=== PATIENT | female | born 1970 | race Caucasian/White ===

== ENCOUNTER 2018-10-17 13:36 | Emergency (ER) | payer MEDICAID ==
[~2018-10-17] VITALS: Ht 152.4 cm; Wt 75.9 kg
[~2018-10-17 13:36] MED LIST: ACET1TAB12 PO; ONDA4TAB12 PO
[2018-10-17 13:53] VITALS: BP 157/71
--- NOTE | 2018-10-17 13:58 | NUR ---
DUE TO THE FACT THAT PT IS UNABLE TO GET BACK TO A ROOM RIGHT AWAY SHE DECIDES TO GO HOME SO SHE CAN LAY DOWN. PT IS TOLD IT WONT BE A LONG WAIT BUT DECIDES TO LEAVE ANYWAY.
== END 2018-10-17 13:59 | disposition left against medical advice (07) ==
LOC: ER 13:37
DX: R10.9 Unspecified abdominal pain (principal); Z53.21 Procedure and treatment not carried out due to patient leaving prior to being seen by health care provider

== ENCOUNTER 2018-11-12 10:48 | Emergency (ER) | payer MEDICAID ==
[~2018-11-12] VITALS: Ht 152.4 cm; Wt 75.9 kg
[2018-11-12 11:38] LABS: BASOPHILS % (AUTO) 0.4 % (0-1); EOSINOPHILS # (AUTO) 0.3 X10'3 (0-0.9); EOSINOPHILS % (AUTO) 4.3 % (0-6); HEMATOCRIT 28.3 % (35.0-45.0); LYMPHOCYTES # (AUTO) 2.2 X10'3 (1.1-4.8); LYMPHOCYTES % (AUTO) 32.7 % (21-51); MEAN CORPUSCULAR HEMOGLOBIN 23.5 PG (27.0-31.0); MEAN CORPUSCULAR HGB CONC 31.8 g/dL (33.0-36.5); MEAN CORPUSCULAR VOLUME 73.8 FL (78-98); MEAN PLATELET VOLUME 7.2 FL (7.4-10.4); MONOCYTES # (AUTO) 0.5 X10'3 (0-0.9); MONOCYTES % (AUTO) 7.9 % (2-12); NEUTROPHILS # (AUTO) 3.7 X10'3 (1.8-7.7); NEUTROPHILS % (AUTO) 54.7 % (42-75); PLATELET COUNT 252 X10'3 (140-440); RED BLOOD COUNT 3.83 X10'6 (4.20-5.60); RED CELL DISTRIBUTION WIDTH 18.8 % (11.5-14.5); WHITE BLOOD COUNT 6.8 X10'3 (4.5-11.0)
[2018-11-12 11:55] LABS: ALANINE AMINOTRANSFERASE 41 U/L (12-78); ALBUMIN 3.6 G/DL (3.4-5.0); ALKALINE PHOSPHATASE 82 IU/L (46-116); ANION GAP 6 (8-16); ASPARTATE AMINO TRANSFERASE 29 U/L (10-37); BILIRUBIN,TOTAL 0.5 MG/DL (0.1-1.0); BLOOD UREA NITROGEN 10 MG/DL (7-18); BUN/CREATININE RATIO 16.1 (6.6-38.0); CALCIUM 9.3 MG/DL (8.5-10.1); CHLORIDE 105 MMOL/L (99-107); CREATININE 0.62 MG/DL (0.40-0.90); GLUCOSE 90 MG/DL (70-104); POTASSIUM 4.1 MMOL/L (3.5-5.1); SODIUM 139 MMOL/L (135-145); TOTAL CARBON DIOXIDE 28.5 MMOL/L (24-32); TOTAL PROTEIN 7.2 G/DL (6.4-8.2); eGFR > 90 ML/MIN
--- NOTE | 2018-11-12 12:00 | NUR ---
VAGINAL EXAM PER DR PRASAD, NO ABNORMAL BLEEDING NOTED, PT TOLERATED WELL, NOTED HAD A CLEAN PAD STATES CHANGED PRIOR TO ARRIVAL.
[2018-11-12 12:02] VITALS: BP 152/85
[2018-11-12 12:14] LABS: ANISOCYTOSIS 2+; MICROCYTOSIS 1+; PLATELET ESTIMATE NORMAL; POLYCHROMASIA 1+
[2018-11-12 12:15] LABS: HYPOCHROMASIA 1+
== END 2018-11-12 12:06 | disposition home or self-care (01) ==
LOC: ER 10:49
DX: N99.820 Postprocedural hemorrhage of a genitourinary system organ or structure following a genitourinary system procedure (principal); N93.9 Abnormal uterine and vaginal bleeding, unspecified; R42 Dizziness and giddiness; Z90.49 Acquired absence of other specified parts of digestive tract; Z98.890 Other specified postprocedural states; Z88.6 Allergy status to analgesic agent; Z88.5 Allergy status to narcotic agent; Z79.899 Other long term (current) drug therapy
CPT/HCPCS: 36415; 80053; 85025; 99283

== ENCOUNTER 2018-12-06 11:13 | Emergency (ER) | payer MEDICAID ==
--- NOTE | 2018-12-06 11:20 | NUR ---
PT NIL FIRST CALL
--- NOTE | 2018-12-06 11:36 | NUR ---
2ND CALL NIL
== END 2018-12-06 11:53 | disposition left against medical advice (07) ==
LOC: ER 11:14
DX: R19.7 Diarrhea, unspecified (principal); Z53.21 Procedure and treatment not carried out due to patient leaving prior to being seen by health care provider

== ENCOUNTER 2019-03-18 09:59 | Emergency (ER) | payer MEDICAID ==
[~2019-03-18] VITALS: Ht 154.9 cm; Wt 80.0 kg
[2019-03-18 10:37] LABS: URINE HCG NEGATIVE (NEG)
[2019-03-18 10:41] LABS: CLARITY,URINE SLIGHTLY CLOUDY (Clear); COLOR,URINE YELLOW (Yellow); GLUCOSE, URINE NEGATIVE (Neg); KETONES,URINE NEGATIVE (Neg); LEUKOCYTE ESTERASE ,URINE TRACE (Neg); NITRITES, URINE NEGATIVE (Neg); OCCULT BLOOD,URINE NEGATIVE (Neg); PH,URINE 5.5 (4.8-8.0); PROTEIN,URINE NEGATIVE (Neg); UROBILINOGEN,URINE 0.2 E.U/dL (0.2-1.0)
[2019-03-18 10:42] LABS: UA COLLECTION TYPE CLN CATCH MIDSTREAM
[2019-03-18 10:48] LABS: BACTERIA,URINE FEW /HPF (Neg); MUCUS STRANDS FEW /LPF (Neg); RBC,URINE 0-2 /HPF (0-2); SQUAMOUS EPITHELIAL CELL,UR MANY /LPF (FEW); WBC,URINE 0-4 /HPF (0-4)
[2019-03-18 11:07] LABS: BASOPHILS % (AUTO) 0.2 % (0-1); EOSINOPHILS # (AUTO) 0.2 X10'3 (0-0.9); EOSINOPHILS % (AUTO) 2.3 % (0-6); HEMATOCRIT 31.8 % (35.0-45.0); HEMOGLOBIN 10.3 g/dl (12.0-16.0); LYMPHOCYTES # (AUTO) 1.8 X10'3 (1.1-4.8); LYMPHOCYTES % (AUTO) 17.5 % (21-51); MEAN CORPUSCULAR HEMOGLOBIN 23.5 PG (27.0-31.0); MEAN CORPUSCULAR HGB CONC 32.5 g/dL (33.0-36.5); MEAN CORPUSCULAR VOLUME 72.4 FL (78-98); MEAN PLATELET VOLUME 7.5 FL (7.4-10.4); MONOCYTES # (AUTO) 0.6 X10'3 (0-0.9); MONOCYTES % (AUTO) 5.8 % (2-12); NEUTROPHILS # (AUTO) 7.8 X10'3 (1.8-7.7); NEUTROPHILS % (AUTO) 74.2 % (42-75); PLATELET COUNT 205 X10'3 (140-440); RED CELL DISTRIBUTION WIDTH 20.8 % (11.5-14.5); WHITE BLOOD COUNT 10.5 X10'3 (4.5-11.0)
[2019-03-18 11:23] LABS: ALANINE AMINOTRANSFERASE 36 U/L (12-78); ALBUMIN 3.5 G/DL (3.4-5.0); ALKALINE PHOSPHATASE 95 IU/L (46-116); ANION GAP 8 (8-16); ASPARTATE AMINO TRANSFERASE 23 U/L (10-37); BILIRUBIN,TOTAL 0.5 MG/DL (0.1-1.0); BLOOD UREA NITROGEN 6 MG/DL (7-18); CALCIUM 8.8 MG/DL (8.5-10.1); CHLORIDE 104 MMOL/L (99-107); GLUCOSE 96 MG/DL (70-104); LIPASE 114 U/L (73-393); POTASSIUM 3.9 MMOL/L (3.5-5.1); SODIUM 137 MMOL/L (135-145); TOTAL PROTEIN 7.1 G/DL (6.4-8.2); eGFR > 90 ML/MIN
[2019-03-18 11:26] LABS: ANISOCYTOSIS 3+; MICROCYTOSIS 1+; PLATELET ESTIMATE NORMAL
[2019-03-18] MEDS ORDERED: normal saline 1000ML IV soln IVB ONE (11:50)
[2019-03-18] MEDS ORDERED: ondansetron/PF 4mg/2ml inj IV ONE (11:50)
[2019-03-18] MEDS ORDERED: morphine 4 MG/ML inj SYRINge IV ONE (11:50)
--- NOTE | 2019-03-18 12:35 | NUR ---
IN TO SEE PT. PT REQUESTS TO NOT HAVE IV OR MEDS AT THIS TIME. NOTIFIED BRYSON SHE STATES OK TO LEAVE OUT AT THIS TIME.
[2019-03-18] MEDS ORDERED: sulfamethoxazole/trimethoprim DS (800/160mg) tablet PO ONE (12:50)
[2019-03-18] MEDS ORDERED: metroNIDAZOLE 500mg tablet PO ONE (12:50)
[2019-03-18] MEDS ORDERED: SULF1TAB49 PO (12:54)
[2019-03-18] MEDS ORDERED: METR500T PO (12:54)
[2019-03-18 13:20] VITALS: BP 126/75
== END 2019-03-18 13:22 | disposition home or self-care (01) ==
LOC: ER 10:00
DX: K57.32 Diverticulitis of large intestine without perforation or abscess without bleeding (principal); Z90.49 Acquired absence of other specified parts of digestive tract; Z98.890 Other specified postprocedural states; Z88.6 Allergy status to analgesic agent; Z88.5 Allergy status to narcotic agent; Z79.899 Other long term (current) drug therapy
CPT/HCPCS: 74176; 80053; 81001; 81025; 83690; 85025; 99284; J2405; J3490